=== PATIENT | male | born 1985 ===

== ENCOUNTER 2019-03-14 14:46 | Emergency (ER) | payer SELFPAY ==
[2019-03-14 14:48] VITALS: BMI 39.4
[2019-03-14 14:55] VITALS: RESP 18; TEMP 98.4
[2019-03-14] MEDS ORDERED: Oxycodone/Acetaminophen 5/325 mg Tab PO STA (14:55)
--- NOTE | 2019-03-14 15:10 | ED PDOC ---
Arrival/HPI - General Chief Complaint: Trauma Time Seen by Provider: 03/14/19 14:51 Historian: Patient - History of Present Illness Narrative History of Present Illness (Text): 03/14/19 14:51 Patient is a 33 year old male, with no significant past medical history, who presents to the emergency department complaining of right ankle pain s/p twisting his ankle after stepping off a ladder prior to arrival. Patient denies fall/trauma, head injury, dizziness, loss of consciousness, hematuria, bloody stool, or any other complaints. Time/Duration: Prior to Arrival Symptom Onset: Sudden Symptom Course: Unchanged Activities at Onset: Light Context: Other (Ladder) Past Medical History - Provider Review Nursing Documentation Reviewed: Yes - Psychiatric Hx Substance Use: No Family/Social History - Physician Review Nursing Documentation Reviewed: Yes Family/Social History: Unknown Family HX Smoking Status: Never Smoked Hx Alcohol Use: Yes Frequency of alcohol use: Socially Hx Substance Use: No Allergies/Home Meds Allergies/Adverse Reactions: Allergies No Known Allergies Allergy (Verified 03/14/19 14:48) Home Medications: Home Meds Medication Instructions Recorded Confirmed No Known Home Med 03/14/19 03/14/19 Review of Systems - Physician Review All systems were reviewed & negative as marked: Yes - Review of Systems Gastrointestinal: absent: Hematochezia Genitourinary Male: absent: Hematuria Musculoskeletal: Arthralgias (right ankle pain). absent: Other (no fall/trauma, head injury) Skin: absent: Rash Neurological: absent: Dizziness, Other (loss of consciousness) Physical Exam Vital Signs Reviewed: Yes Vital Signs Temp Pulse Resp BP Pulse Ox 03/14/19 14:54 98.4 F 76 18 153/64 H 98 Temperature: Afebrile Blood Pressure: Normal Pulse: Regular Respiratory Rate: Normal Appearance: Positive for: Well-Appearing, Non-Toxic, Comfortable Pain Distress: None Mental Status: Positive for: Alert and Oriented X 3 - Systems Exam Head: Present: Atraumatic, Normocephalic Pupils: Present: PERRL Extroacular Muscles: Present: EOMI Conjunctiva: Present: Normal Mouth: Present: Moist Mucous Membranes Lower Extremity: Present: Tenderness (right lateral malleolus), Swelling (right lateral malleolus), Neurovascularly Intact, Other (able to move toes with normal ROM. Normal ROM and no tenderness at hip and knee) Skin: Present: Warm, Dry Psychiatric: Present: Alert, Oriented x 3 Medical Decision Making ED Course and Treatment: 03/14/19 14:51 Impression: Patient is a 33 year old male, with no significant past medical history, who presents to the emergency department complaining of right ankle alexis n s/p twisting his right ankle after stepping off a ladder. Denies any other trauma, head injury, dizziness, loss of consciousness. Focused exam of right lower extremity; right lateral malleolus swollen and tender, lower extremity neurovascularly intact. Patient is able to move toes with full range of motion. Plan: -- Percocet 325 mg -- Right Ankle X-Ray 3V -- Reassess and disposition Prior Visits: Notes and results from previous visits were reviewed. Progress Notes: Xray: Comminuted fracture of the distal right tibia. 03/14/19 16:[address] Messer, covering for orthopedics. Requesting splint and transfer to [facility] [place] mgmt 03/14/19 16:35 Placed in splint by [facility] and checked by me. Accepted by ED MD Dr. Hernandez at [facility] [place] and Dr. Arciniega at [facility] [place]. 03/14/19 16:57 - RAD Interpretation Radiology Orders: 03/14/19 14:51 ANKLE RIGHT 3 VIEWS ROUTINE [RAD] Stat - Medication Orders Current Medication Orders: Discontinued Medications Oxycodone/Acetaminophen (Percocet 5/325 Mg Tab) 1 tab PO STAT STA Stop: 03/14/19 14:56 - Scribe Statement The provider has reviewed the documentation as recorded by the Scribmaryjane Nogueira All medical record entries made by the Scribe were at my direction and personally dictated by me. I have reviewed the chart and agree that the record accurately reflects my personal performance of the history, physical exam, medical decision making, and the department course for this patient. I have also personally directed, reviewed, and agree with the discharge instructions and disposition. Disposition/Present on Arrival - Present on Arrival Any Indicators Present on Arrival: No History of DVT/PE: No History of Uncontrolled Diabetes: No Urinary Catheter: No History of Decub. Ulcer: No History Surgical Site Infection Following: None - Disposition Have Diagnosis and Disposition been Completed?: Yes Diagnosis: Tibia fracture Disposition: Transfer [facility] [place] Disposition Time: 16:12 Patient Plan: Transfer To ([facility] [place] Patient Problems: Current Active Problems Problem Status Onset Tibia fracture Acute Condition: FAIR Referrals: FAMILY PROVIDER,NO [Primary Care Provider] - Follow up with primary Forms: [email or web address] (Arabic)
[2019-03-14] MEDS ORDERED: Morphine 4 mg/ml ISec IVP STA (16:19)
--- NOTE | 2019-03-14 17:01 | RAD ---
Date of service: 03/14/2019 PROCEDURE: Right Ankle Radiographs. HISTORY: R ankle pain after fall COMPARISON: None available. TECHNIQUE: 3 views obtained. FINDINGS: BONES: Comminuted fracture of the distal right tibia. Large fracture fragments are seen anterior to the tibial talar junction. Additional smaller fracture fragments displaced laterally. Approximately 1 shaft's with overriding of the major fracture fragments. JOINTS: No evidence of dislocation. SOFT TISSUES: Soft tissue swelling attests to the acuity of the fracture. OTHER FINDINGS: None. IMPRESSION: Acute and comminuted fracture of the distal right tibia. Concordant results with the preliminary interpretation rendered by the emergency department physician procedure.
[2019-03-14 17:16] VITALS: BP 140/86; PULSE 98; O2SAT 97
== END 2019-03-14 22:13 | disposition short-term general hospital (02) ==
LOC: ED 14:46
DX: S82.301A Unspecified fracture of lower end of right tibia, initial encounter for closed fracture (principal); X50.1XXA Overexertion from prolonged static or awkward postures, initial encounter
CPT/HCPCS: 73610; 96374; 99285; J2270